=== PATIENT | female | born 1970 | race Caucasian/White ===

== ENCOUNTER → 2016-05-25 | Outpatient (CLI) | payer BC ==
--- NOTE | 2016-05-25 18:22 | WWHP ---
DATE OF DICTATION: 05/25/2016 CHIEF COMPLAINT: The patient is here for her routine gynecologic exam and mammogram. HISTORY OF PRESENT ILLNESS: This is a 45-year-old with an LMP of 05/15/16. The patient is on Ortho Tri-Cyclen Lo for control. She is without gynecologic complaints and states her periods are regular and light. PAST MEDICAL HISTORY: Depression and elevated cholesterol. MEDICATIONS: 1. Effexor 75 mg daily, but she says she is trying to wean off of this. 2. Ortho Tri-Cyclen Lo 1 daily. 3. Lipitor 20 mg daily. ALLERGIES: SULFA. PAST SURGICAL HISTORY: Laminectomy in 2011 and 2016. 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 SOCIAL HISTORY: She denies tobacco and drug use and has 0 to 2 alcoholic drinks per week. 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 FAMILY HISTORY: Father had an [place]. REVIEW OF SYSTEMS: Weight has been stable. She denies respiratory, cardiac or GI problems. PHYSICAL EXAM: Blood pressure 115/63. Height 5 feet 6 inches. Weight 162 pounds. Temperature 97.7, pulse 81. This is a well-developed, well-nourished white female who is alert and oriented x3, in no acute distress. HEENT is within normal limits. NECK: Supple without mass or thyromegaly. CHEST AND LUNGS: Clear to auscultation. HEART: Regular rate and rhythm. Breasts are without mass or discharge. Axillary exam is negative for adenopathy. BACK: Negative for CVA tenderness. ABDOMEN: Soft, nontender, without palpable masses. PELVIC EXAM: Normal external genitalia. Cervix and vagina appear normal. There is no evidence of prolapse. The uterus is retroverted, nongravid size and nontender. There are no palpable adnexal masses or tenderness. Rectal exam is negative for mass or tenderness and is negative for occult blood. EXTREMITIES: Nontender. IMPRESSION: A 45-year-old gynecologically healthy female doing well on oral contraception. PLAN: 1. Pap smear was performed. 2. Self breast examination was discussed. 3. Mammogram will be done today. 4. She will return in one year.
--- NOTE | 2016-05-26 08:09 | MM ---
Reason for exam: screening (asymptomatic). Last mammogram was performed 1 year and 4 months ago. Physical Findings: A clinical breast exam by your physician is recommended on an annual basis and results should be correlated with mammographic findings. MG Screening Mammo w CAD Bilateral CC and MLO view(s) were taken. Prior study comparison: February 03, 2015, bilateral MG screening mammo w CAD. June 21, 2013, bilateral digital screening mammo w/CAD. The breast tissue is heterogeneously dense. This may lower the sensitivity of mammography. No significant changes when compared with prior studies. ASSESSMENT: Negative, BI-RAD 1 RECOMMENDATION: Routine screening mammogram of both breasts in 1 year.
--- NOTE | 2016-06-07 12:39 | WWPLE ---
June 07, 2016 KERA CABRAL MD RE: Carol Rodgers Dear Dr. Cabral: I had the pleasure of seeing your patient, Carol Rodgers in the office on 05/25/16.As you know she is a 45-year-old female who presented to me for her routine gynecologic exam and mammogram. Her gynecologic exam was unremarkable. She has been doing well on oral contraception for control. Her periods have generally been regular and light. Her Pap smear was negative, but did show endometrial cells which is a little unusual since she was about 10 days past her LMP. This may have been because her control pill prescription ran out 2 months prior to seeing me. We will be doing a pelvic ultrasound to check the endometrial thickness. If this is normal, no further testing will be required at this time. Her mammogram was benign. Thank you for allowing me to participate in the care of your patient. Please do not hesitate to call if you have any questions. Sincerely, NAPOLEON CHINCHILLA MD [facility]
== END | disposition home or self-care (01) ==
LOC: WWCWWP 08:32
PROVIDERS: ATTEND Obstetrics & Gynecology
DX: Z12.31 Encounter for screening mammogram for malignant neoplasm of breast (principal)

== ENCOUNTER → 2016-06-29 | Outpatient (CLI) | payer BC ==
--- NOTE | 2016-06-29 16:50 | US ---
EXAMINATION TYPE: US pelvic complete DATE OF EXAM: 06/29/2016 4:34 PM COMPARISON: NONE CLINICAL HISTORY: R87.618 ENDOMETRIAL CELLS ON PAP. TECHNIQUE: Transabdominal (TA) Date of LMP: 06/10/2016 EXAM MEASUREMENTS: Uterus: 8.3 x 4.3 x 5.2 cm Endometrial Stripe: 0.5 cm Right Ovary: 2.1 x 1.3 x 2.2 cm Left Ovary: 2.3 x 1.8 x 1.9 cm TECHNOLOGIST IMPRESSION: wnl 1. Uterus: Retroverted heterogeneous 2. Endometrium: wnl 3. Right Ovary: wnl 4. Left Ovary: wnl 5. Bilateral Adnexa: wnl 6. Posterior cul-de-sac: no free fluid Uterus is heterogeneous in appearance and slightly retroverted in shape but normal in size. Endometri um is not well seen and presumed atrophic. Evaluation is suboptimal due to transvaginal evaluation no t being performed. No free fluid is seen in pelvis. Both ovaries are felt present and not suspiciously enlarged. No adnexal masses are seen. IMPRESSION: Suboptimal study without transvaginal evaluation, no suspicious abnormality is seen on tr ansabdominal evaluation.
== END | disposition home or self-care (01) ==
LOC: RADUSWWP 16:20
PROVIDERS: ATTEND Obstetrics & Gynecology
DX: R87.618 Other abnormal cytological findings on specimens from cervix uteri (principal)
CPT/HCPCS: 76856

== ENCOUNTER → 2017-08-22 | Outpatient (CLI) | payer BC ==
[2017-08-22 16:42] VITALS: BP 132/76; PULSE 84; TEMP 97.1; BMI 28.3
--- NOTE | 2017-08-22 17:10 | P.HPOB ---
History of Present Illness H&P Date: 08/22/17 Chief Complaint: The patient is here for her routine gynecologic exam and mammogram. This is a 46-year-old G2 PII within LMP of 08/03/2017. The patient is doing well and oral contraception and would like to continue on them at this time. She is without gynecologic complaints and denies any intermenstrual bleeding. Review of Systems The patient has gained 13 pounds over the last year. She denies respiratory, cardiac, or G.I. problems. 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 - Past Family History Father Family Medical History: Myocardial Infarction ([place]) Medications and Allergies Home Medications Medication Instructions Recorded Confirmed Type Atorvastatin [Lipitor] mg PO DAILY 08/22/17 History DULoxetine HCL [Cymbalta] mg PO 08/22/17 History Norgestimate-Ethinyl Estradiol tab PO DAILY 08/22/17 History [Ortho Tri-Cyclen 28 Tablet] Allergies Allergy/AdvReac Type Severity Reaction Status Date / Time Sulfa (Sulfonamide Allergy Rash/Hives Verified 08/22/17 17:06 Antibiotics) Exam - Vital Signs Vital signs: Vital Signs Temp Pulse BP 08/22/17 16:26 97.1 F L 84 132/76 Intake and Output 08/22/17 08/22/17 08/22/17 06:59 14:59 22:59 Other: Weight 79.746 kg Height 5'6", BMI 28.4. This is a well-developed well-nourished white female who is alert and oriented times 3 in no acute distress. HEENT: Within normal limits. NECK: Supple without mass or thyromegaly. CHEST AND LUNGS: Clear to auscultation. HEART: Regular rate and rhythm. BREASTS: Are without mass or discharge. AXILLARY EXAM: Negative for adenopathy. BACK: Negative for CVA tenderness. ABDOMEN: Soft, nontender, without palpable masses. PELVIC EXAM: Normal external genitalia. Cervix and vagina appear normal. There is no unusual discharge. There is no evidence of prolapse. The uterus is slightly retroverted, nongravid size and nontender. There are no palpable adnexal masses or tenderness. RECTAL EXAM: negative for mass or tenderness and is negative for occult blood. EXTREMITIES: Nontender. IMPRESSION: 1. 46-year-old female with normal gynecologic exam is doing well with oral contraception. PLAN: 1. Pap smear was deferred since she had a negative Pap smear last year 2. Screening mammogram will be done today. 3. Continue oral contraception at this time. We will plan on checking and FSH at the end of the inactive pill week or having a trial off of oral contraception next year. 4. The patient will return in one year.
--- NOTE | 2017-08-24 11:19 | MM ---
Reason for exam: screening (asymptomatic). Last mammogram was performed 1 year and 3 months ago. Physical Findings: A clinical breast exam by your physician is recommended on an annual basis and results should be correlated with mammographic findings. MG Screening Mammo w CAD Bilateral CC and MLO view(s) were taken. Prior study comparison: May 25, 2016, bilateral MG screening mammo w CAD. February 03, 2015, bilateral MG screening mammo w CAD. The breast tissue is heterogeneously dense. This may lower the sensitivity of mammography. No significant changes when compared with prior studies. ASSESSMENT: Negative, BI-RAD 1 RECOMMENDATION: Routine screening mammogram of both breasts in 1 year.
== END | disposition home or self-care (01) ==
LOC: WWCWWP 15:51
PROVIDERS: ATTEND Obstetrics & Gynecology
DX: Z12.31 Encounter for screening mammogram for malignant neoplasm of breast (principal)
CPT/HCPCS: 77067

== ENCOUNTER → 2019-09-18 | Outpatient (CLI) | payer BC ==
[2019-09-18 09:20] VITALS: BP 126/73; PULSE 87; RESP 20; TEMP 98.2
--- NOTE | 2019-09-18 09:59 | P.HPOB ---
History of Present Illness H&P Date: 09/18/19 Chief Complaint: The patient is here for her routine gynecologic exam and ma mmogram. This is a 48-year-old with an LMP of 08/11/2019. The patient stopped control pills about 2 years ago. She states she was going to restart control pills after her prescription ran out and she was going to wait for a menstrual period to restart them 2 years ago, but the period did not start for a few months. She then decided to not restart the control pills. She has been having menstrual periods about every 3 months and they have been infrequent and somewhat irregular. The periods have been different and typically lasting 1 day with heavy flow and then some clarification operator clotting. Over the past 2 years she has also been having progressively worsening hot flashes. She has been using abstinence for control. She is otherwise without complaints. Review of Systems The patient has gained 3 pounds over the last year. She denies respiratory, cardiac, or G.I. problems. 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 - Past Family History Father Family Medical History: Myocardial Infarction ([place]) Medications and Allergies Home Medications Medication Instructions Recorded Confirmed Type Atorvastatin [Lipitor] 10 mg PO HS 08/22/17 09/18/19 History DULoxetine HCL [Cymbalta] 20 mg PO DAILY 08/22/17 09/18/19 History Allergies Allergy/AdvReac Type Severity Reaction Status Date / Time Sulfa (Sulfonamide Allergy Rash/Hives Verified 09/18/19 09:16 Antibiotics) Exam Vital Signs Temp Pulse Resp BP Pulse Ox 09/18/19 09:18 98.2 F 87 20 126/73 99 Intake and Output 09/17/19 09/18/19 09/18/19 22:59 06:59 14:59 Other: Weight 80.739 kg Height 5 feet 6 inches, weight 178 pounds, BMI 28.7. This is a well-developed well-nourished white female who is alert and oriented times 3 in no acute distress. HEENT: Within normal limits. NECK: Supple without mass or thyromegaly. CHEST AND LUNGS: Clear to auscultation. HEART: Regular rate and rhythm. BREASTS: Are without mass or discharge. AXILLARY EXAM: Negative for adenopathy. BACK: Negative for CVA tenderness. ABDOMEN: Soft, nontender, without palpable masses. PELVIC EXAM: Normal external genitalia. Cervix and vagina appear normal. There is no unusual discharge. The cervix is slightly friable upon doing the Pap s mear. There is no evidence of prolapse. The uterus is slightly retroverted, multiparous nongravid size and nontender. There are no palpable adnexal masses or tenderness. RECTAL EXAM: negative for mass or tenderness and is negative for occult blood. EXTREMITIES: Nontender. IMPRESSION: 1. 48-year-old perimenopausal female with oligomenorrhea and worsening vasomotor symptoms with normal gynecologic exam. 2. The patient has been using abstinence for control. PLAN: 1. Pap smear was performed. 2. Self breast awareness was discussed with the patient. 3. screening mammogram will be done today. 4. We have discussed that her chances of getting are probably decreasing because of her perimenopausal status. She understands that it is still possible to become . I have recommended that she use condoms if she is sexually active. 5. I recommended that she keep a menstrual calendar and she was instructed to call if she is having menstrual problems or if she has vaginal bleeding after 12 months of amenorrhea. I have recommended that she use some type of control until she has become amenorrheic for 12 months straight. 6.Osteoporosis prevention was discussed. I have stressed the importance of adequate calcium, vitamin D and regular exercise. Recommended amounts of calcium and vitamin D were also discussed. 7. She was advised to return in one year for her annual well woman exam and as needed.
--- NOTE | 2019-09-19 11:40 | MM ---
Reason for exam: screening (asymptomatic). Last mammogram was performed 2 years and 1 month ago. Physical Findings: A clinical breast exam by your physician is recommended on an annual basis and results should be correlated with mammographic findings. MG Screening Mammo w CAD Bilateral CC and MLO view(s) were taken. Prior study comparison: August 22, 2017, bilateral MG screening mammo w CAD. May 25, 2016, bilateral MG screening mammo w CAD. The breast tissue is heterogeneously dense. This may lower the sensitivity of mammography. There is chronic nodularity in the right breast laterally. No significant changes when compared with prior studies. ASSESSMENT: Negative, BI-RAD 1 RECOMMENDATION: Routine screening mammogram of both breasts in 1 year.
--- NOTE | 2019-10-01 11:27 | P.PN ---
Progress Note - Text Progress Note Date: 10/01/19 OUTPATIENT FOLLOW-UP NOTE TEST(S)/RESULTS: test results from 09/18/2019 include negative Pap smear and benign mammogram. METHOD OF NOTIFICATION: a message with these results was left on the patient's voice mail. PATIENT COMMENTS: DIAGNOSIS: negative Pap smear and benign mammogram. DISCUSSION: PLAN: the patient is to return in one year for her annual well woman exam.
== END | disposition home or self-care (01) ==
LOC: WWCWWP 09:08
PROVIDERS: ATTEND Obstetrics & Gynecology
DX: Z12.31 Encounter for screening mammogram for malignant neoplasm of breast (principal)
CPT/HCPCS: 77067

== ENCOUNTER → 2021-02-11 | Outpatient (CLI) | payer OTHER ==
--- NOTE | 2021-02-11 15:07 | XR ---
EXAMINATION TYPE: XR shoulder complete RT DATE OF EXAM: 02/11/2021 CLINICAL HISTORY: Injury with pain. TECHNIQUE: Three views of the right shoulder are obtained. COMPARISON: None. FINDINGS: There is no acute fracture/dislocation evident in the right shoulder. Mild to moderate gunner rowing right acromioclavicular joint. Distal acromion morphology unremarkable. Mild narrowing glenohu meral joint. The visualized ribs are intact . IMPRESSION: As above.
== END | disposition home or self-care (01) ==
LOC: RADXRMAIN 14:37
PROVIDERS: ATTEND Emergency Medicine
DX: S49.91XA Unspecified injury of right shoulder and upper arm, initial encounter (principal); M25.811 Other specified joint disorders, right shoulder; X58.XXXA Exposure to other specified factors, initial encounter

== ENCOUNTER → 2022-11-29 | Outpatient (CLI) | payer BC ==
[2022-11-29 14:46] VITALS: BP 129/81; PULSE 81; RESP 16; TEMP 98.5
--- NOTE | 2022-11-29 15:29 | P.HPOB ---
History of Present Illness H&P Date: 11/29/22 Chief Complaint: The patient is here for her routine gynecologic exam and ma mmogram. This is a 52-year-old with an LMP of 2020. The patient is here to reestablish with this office. It has been more than 3 years since her last pelvic exam. She has had hot flashes since becoming amenorrheic and they are tolerable. She is otherwise without gynecologic complaints and denies any postmenopausal bleeding. Review of Systems She has lost about 33 pounds since she was last here in 2019. She has lost this weight intentionally with a very strict diet. She has been following this diet with her who has lost significant weight as well. She denies respiratory, cardiac, or GI problems. 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 - Past Family History Father Family Medical History: Myocardial Infarction ([place]) Medications and Allergies Home Medications Medication Instructions Recorded Confirmed Type Atorvastatin [Lipitor] 10 mg PO HS 08/22/17 11/29/22 History DULoxetine HCL [Cymbalta] 20 mg PO DAILY 08/22/17 11/29/22 History Allergies Allergy/AdvReac Type Severity Reaction Status Date / Time Sulfa (Sulfonamide Allergy Rash/Hives Verified 11/29/22 14:42 Antibiotics) Exam Vital Signs Temp Pulse Resp BP Pulse Ox 11/29/22 14:43 98.5 F 81 16 129/81 100 Intake and Output 11/29/22 11/29/22 11/29/22 06:59 14:59 22:59 Other: Weight 65.771 kg Height 5 feet 5 inches, weight 145 pounds, BMI 24.1. This is a well-developed well-nourished white female who is alert and oriented times 3 in no acute distress. HEENT: Within normal limits. NECK: Supple without mass or thyromegaly. CHEST AND LUNGS: Clear to auscultation. HEART: Regular rate and rhythm. BREASTS: Are without mass or discharge. AXILLARY EXAM: Negative for adenopathy. BACK: Negative for CVA tenderness. ABDOMEN: Soft, nontender, without palpable masses. PELVIC EXAM: Normal external genitalia with minimal atrophy. Cervix and vagina appear normal with minimal atrophy. There is no unusual discharge. There is no evidence of prolapse. The uterus is retroverted, nongravid size and nontender. There are no palpable adnexal masses or tenderness. RECTAL EXAM: Rectovaginal exam is negative for mass or tenderness and is negative for occult blood. EXTREMITIES: Nontender. IMPRESSION: 1. 52-year-old menopausal female with normal gynecologic exam. PLAN: 1. Pap smear cotest was performed. 2. Self breast awareness was discussed with the patient. We have also dis cussed symptoms associated with inflammatory breast cancer. 3. Screening mammogram will be done today. 4. Osteoporosis prevention was discussed. I have stressed the importance of adequate calcium, vitamin D and regular exercise. Recommended amounts of calcium and vitamin D were also discussed. 5. She is scheduled for her first colonoscopy in February of this year. 6. She was advised to return in one year for her annual well woman exam.
== END ==
LOC: WWCWWP 14:29
PROVIDERS: ATTEND Obstetrics & Gynecology
DX: Z01.419 Encounter for gynecological examination (general) (routine) without abnormal findings (principal); E78.5 Hyperlipidemia, unspecified; Z12.31 Encounter for screening mammogram for malignant neoplasm of breast; Z78.0 Asymptomatic menopausal state; Z88.2 Allergy status to sulfonamides

== ENCOUNTER → 2022-11-29 | Outpatient (CLI) | payer BC ==
--- NOTE | 2022-11-30 13:44 | MM ---
Reason for Exam: Screening (asymptomatic). Last mammogram was performed 3 year(s) and 2 month(s) ago. Patient History: Menarche at age 14. First Full-Term at age 27. Postmenopausal. Patient has history of breast feeding. Currently . Risk Values: Kisha 5 year model risk: 1.1%. NCI Lifetime model risk: 9.7%. Prior Study Comparison: 05/25/2016 Bilateral Screening Mammogram, [facility]. 08/22/2017 Bilateral Screening Mammogram, [facility]. 09/18/2019 Bilateral Screening Mammogram, [facility]. Tissue Density: The breast tissue is heterogeneously dense. This may lower the sensitivity of mammography. Findings: Analyzed By CAD. There is no suspicious group of microcalcifications or new suspicious mass in either breast. Overall Assessment: Negative, BI-RAD 1 Management: Screening Mammogram of both breasts in 1 year. . Patient should continue monthly self-breast exams. A clinical breast exam by your physician is recommended on an annual basis. This exam should not preclude additional follow-up of suspicious palpable abnormalities. Note on Kisha scores and lifetime risk: 1. A Kisha score greater than 3% is considered moderate risk. If this is the case, consider specialist referral to assess eligibility for a risk reducing agent. 2. If overall lifetime risk for the development of breast cancer is 20% or higher, the patient may qualify for future screening with alternating mammogram and breast MRI. Electronically signed and approved by: Erich El M.D. Radiologis
== END | disposition home or self-care (01) ==
LOC: RADMAMWWP 14:32
PROVIDERS: ATTEND Internal Medicine
DX: Z12.31 Encounter for screening mammogram for malignant neoplasm of breast (principal); Z78.0 Asymptomatic menopausal state
CPT/HCPCS: 77067

== ENCOUNTER → 2023-12-05 | Outpatient (CLI) | payer BC ==
[2023-12-05 09:35] VITALS: BP 115/68; PULSE 76; RESP 16; TEMP 98.1
--- NOTE | 2023-12-05 10:00 | P.HPOB ---
History of Present Illness H&P Date: 12/05/23 Chief Complaint: The patient is here for her routine gynecologic exam and ma mmogram. This is a 53-year-old with an LMP of 2020. The patient is without gynecologic complaints and denies any postmenopausal bleeding. Review of Systems The patient's weight has been stable over the last year. She denies respiratory, cardiac, or G.I. problems. 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 - Past Family History Father Family Medical History: Congestive Heart Failure (CHF), Myocardial Infarction ([place]) Additional Family Medical History / Comment(s): Mother Family Medical History: Hypertension Additional Family Medical History / Comment(s): Tachycardia. Medications and Allergies Home Medications Medication Instructions Recorded Confirmed Type Atorvastatin [Lipitor] 10 mg PO HS 08/22/17 12/05/23 History DULoxetine HCL [Cymbalta] 20 mg PO DAILY 08/22/17 12/05/23 History Allergies Allergy/AdvReac Type Severity Reaction Status Date / Time Sulfa (Sulfonamide Allergy Rash/Hives Verified 12/05/23 09:31 Antibiotics) Exam Vital Signs Temp Pulse Resp BP Pulse Ox 12/05/23 09:32 98.1 F 76 16 115/68 100 Intake and Output 12/04/23 12/05/23 12/05/23 22:59 06:59 14:59 Other: Weight 66.224 kg Height 5 feet 5 inches, weight 146 pounds, BMI 24.3. This is a well-developed well-nourished white female who is alert and oriented times 3 in no acute distress. HEENT: Within normal limits. NECK: Supple without mass or thyromegaly. CHEST AND LUNGS: Clear to auscultation. HEART: Regular rate and rhythm. BREASTS: Are without mass or discharge. AXILLARY EXAM: Negative for adenopathy. BACK: Negative for CVA tenderness. ABDOMEN: Soft, nontender, without palpable masses. PELVIC EXAM: Normal external genitalia with minimal atrophy. Cervix and vagina appear normal with minimal atrophy. There is no unusual discharge. There is no evidence of prolapse. The uterus is slightly retroverted, nongravid size and nontender. There are no palpable adnexal masses or tenderness. RECTAL EXAM: Rectovaginal exam is negative for mass or tenderness and is negative for occult blood. EXTREMITIES: Nontender. IMPRESSION: 1. 53-year-old menopausal female with normal gynecologic exam. PLAN: 1. Pap smear was deferred since she had a negative Pap smear cotest on 11/29/2022. 2. Self breast awareness was discussed with the patient. We have also discussed symptoms associated with inflammatory breast cancer. 3. Screening mammogram will be done today. 4. Osteoporosis prevention was discussed. I have stressed the importance of adequate calcium, vitamin D and regular exercise. Recommended amounts of calcium and vitamin D were also discussed. 5. She states she is planning to reschedule her colonoscopy since it was recently canceled. This will be her first. 6. She was advised to return in one year for her annual well woman exam.
== END ==
LOC: WWCWWP 09:20
PROVIDERS: ATTEND Obstetrics & Gynecology
DX: Z12.31 Encounter for screening mammogram for malignant neoplasm of breast (principal); Z78.0 Asymptomatic menopausal state; Z88.2 Allergy status to sulfonamides

== ENCOUNTER → 2024-08-05 | Outpatient (CLI) | payer BC ==
[2024-08-05 09:27] LABS: INR 0.9 (<1.2); Partial Thromboplastin Time 24.2 sec (22.0-30.0)
[2024-08-05 15:39] LABS: Basophils # (A) 0.04 X 10*3/uL (0.00-0.10); Basophils % (A) 0.7 %; Eosinophils # (A) 0.14 X 10*3/uL (0.04-0.35); Eosinophils % (A) 2.6 %; HCT 44.3 % (37.2-46.3); HGB 14.2 g/dL (12.0-15.0); Lymphocytes # (A) 1.64 X 10*3/uL (0.90-5.00); Lymphocytes % (A) 30.5 %; MCH 30.1 pg (27.0-32.0); MCHC 32.1 g/dL (32.0-37.0); MCV 94.1 FL (80.0-97.0); Mean Platelet Volume 10.3 FL (9.5-12.2); Monocytes # (A) 0.26 X 10*3/uL (0.20-1.00); Monocytes % (A) 4.8 %; NRBC Per 100 WBC 0 X 10*3/uL (0.00-0.01); Neutrophils # (A) 3.29 X 10*3/uL (1.80-7.70); Neutrophils % (A) 61.2 %; Platelet Count 324 X 10*3/uL (140-440); RBC 4.71 X 10*6/uL (4.10-5.20); RDW 12.2 % (11.5-14.5); WBC 5.38 X 10*3/uL (4.50-10.00)
[2024-08-05 15:44] LABS: Blood Urea Nitrogen 15.5 mg/dL (9.0-27.0); Carbon Dioxide 29.4 mmol/L (21.6-31.8); Chloride 104 mmol/L (96-109); Potassium 4.5 mmol/L (3.5-5.5); Sodium 141 mmol/L (135-145)
== END | disposition home or self-care (01) ==
LOC: LABWHC1 08:13
PROVIDERS: ATTEND Internal Medicine
DX: N04.9 Nephrotic syndrome with unspecified morphologic changes (principal)
CPT/HCPCS: 36415; 80051; 82565; 84520; 85025; 85610; 85730; 86850; 86900; 86901

== ENCOUNTER 2024-08-06 08:09 | Day surgery (SDC) | payer BC ==
[2024-08-06] MEDS ORDERED: HYDROmorphone 0.5 MG/0.5 ML SYRINGE IVP PRN (09:09)
[2024-08-06 09:16] VITALS: RESP 16; TEMP 98.6
[2024-08-06] MEDS: ALPRAZolam 0.5 MG TAB PO STA (09:21)
[2024-08-06] MEDS: DESMOPRESSIN ACETATE 20 MCG in SODIUM CHLORIDE 0.9% 50 ML IVPB ONE (09:37)
[2024-08-06 15:08] VITALS: BP 100/68; PULSE 100
--- NOTE | 2024-08-07 15:08 | CT ---
EXAMINATION TYPE: CT biopsy renal LT DATE OF EXAM: 08/06/2024 11:31 AM CLINICAL INDICATION:Female, 53 years old with history of N04.9 NEPHROTIC SYNDROME WITH UNSPECIFIED MO RPHOLOGY; renal bx performed by Dr. Obregon COMPARISON: None. CT DLP: 1443 mGycm, Automated exposure control for dose reduction was used. Contrast used: mL of , none Oral contrast used: none ATTENDING: Dr. Obregon TECHNIQUE: CT guided percutaneous random biopsy of kidney using coaxial method. FINDINGS: The procedure was explained to the patient including risks of bleeding, bruising, infection, damage t o nearby organs and need for additional therapy including potential surgery. All questions were answ ered and consent was obtained. The patient was placed on the CT couch in the prone position. Lower pole right kidney was targeted. The overlying skin was marked and prepped using sterile method. Timeout was taken per protocol. Follo wing administration of local anesthesia a 17 gauge coaxial needle was introduced from posterolateral approach towards lower pole right kidney. The coaxial needle tip was directed into the lower pole wi th CT guidance. Multiple 18 gauge coaxial biopsies were then obtained. A few passes only had a adjac ent perinephric fat and thus repeat passes were performed. Following the procedure the needle was rem luis and sterile dressing was applied to the percutaneous site. Post biopsy imaging demonstrated no evidence of significant hematoma. Patient was taken for postprocedure observation in stable condition . Patient was subsequently discharged home in stable condition. IMPRESSIONS: Status post percutaneous random renal biopsy as described above. Pathology results pending. [facility], , 08/07/2024 3:05 PM
== END 2024-08-06 15:10 | disposition home or self-care (01) ==
LOC: RADPROMAIN 08:09
PROVIDERS: ATTEND Internal Medicine
DX: I12.9 Hypertensive chronic kidney disease with stage 1 through stage 4 chronic kidney disease, or unspecified chronic kidney disease (principal); N18.9 Chronic kidney disease, unspecified; E78.5 Hyperlipidemia, unspecified; Z79.899 Other long term (current) drug therapy; Z88.2 Allergy status to sulfonamides; Z84.1 Family history of disorders of kidney and ureter
CPT/HCPCS: 96365; 36415; 50200; 77012; J2597